=== PATIENT | male | born 1955 | race Caucasian/White ===

== ENCOUNTER 2020-01-09 20:31 | Emergency (ER) | payer BC, SELFPAY ==
[2020-01-09 20:32] VITALS: BP 159/98; PULSE 80; RESP 16; TEMP 36.3; O2SAT 97; BMI 24.4
--- NOTE | 2020-01-09 21:37 | ED.VIS.GEN ---
History of Present Illness Chief Complaint: Laceration Informant: Patient, Significant Other Onset: Today Narrative: Patient had a baseball strike his left eyebrow. The baseball was being gently thrown at him. No loss of consciousness. He is not on any blood thinners. He denies headache. He needs a tetanus shot. Past Medical History - Allergies and Home Meds Allergies/Adverse Reactions: Allergies No Known Allergies Allergy (Verified 01/09/20 20:37) Smoking Status: Never smoker Review of Systems General: Denies: Chills, Fever, Sweats Eyes: Denies: Visual changes - bilaterally, Diplopia ENT: Denies: Rhinorrhea, Sore throat Cardiovascular: Denies: Chest pain, Palpitations Respiratory: Denies: Dyspnea, Cough, Dyspnea on exertion Gastrointestinal: Denies: Abdominal pain, Nausea, Vomiting, Diarrhea, Melena, Hematochezia Genitourinary: Denies: Dysuria, Hematuria, Frequency Musculoskeletal: Denies: Back pain, Extremity Pain Skin: Denies: Rash, Wounds Neurological: Denies: Headache, Weakness, Numbness Physical Exam Vital Signs/Narrative: Vital Signs Temp Pulse Resp BP Pulse Ox 01/09/20 20:32 97.3 F L 80 16 159/98 H 97 Inital Vital Signs reviewed: Yes General: Well nourished, Well developed, No Acute Distress Head: Normocephalic, Trauma - There is a approximately 3 cm Y-shaped laceration in the left eyebrow. The eye itself appears atraumatic. Mild swelling and bruising of the left upper lid. Eyes: Perrl, EOMI ENT: Moist mucous membranes, No rhinorrhea Neck: Supple, Nontender Cardiovascular: Regular rate, Regular rhythm, No murmurs Respiratory: No distress, CTA bilaterally, Chest nontender Abdomen: Soft, Nontender, Nondistended, Normal bowel sounds Back: Nontender, Normal Inspection Extremities: Nontender, No edema Skin: Normal color, No rash Neurological: Alert, Oriented x3, Cranial nerves II-XII grossly intact, Normal Strength, Normal Sensation Psychological: Normal affect, Normal Mood Diagnostic/Tx/Re-eval - Medical Decision Making Wound was locally anesthetized using 1% lidocaine. Is washed with Shur-Clens and explored. A total of 5 simple interrupted 5-0 Ethilon sutures were placed. Local wound care discussed with patient. Return instructions of head injury were given. ED Disposition - Plan for ED Patient: Disposition: Home or Assisted Living Diagnosis: Facial laceration Instructions: ED Laceration Facial Sutr Tape, ED Head Injury Adult Additional Instructions: It should be removed in 5 to 7 days Recommend putting an antibiotic ointment on this wound daily. Fresh scars typically west different so if you are going to be out in the sun I recommend putting a sunscreen on her at least a hat.
[2020-01-09] MEDS: Diphth,Pertuss(Acell),Tet Vac 0.5 ML Vial IM (21:52)
== END 2020-01-09 22:10 | disposition home or self-care (01) ==
LOC: ED 21:47
PROVIDERS: Emergency Provider Emergency Medicine
DX: S01.112A Laceration without foreign body of left eyelid and periocular area, initial encounter (principal); W21.03XA Struck by baseball, initial encounter; Y93.9 Activity, unspecified; Y92.9 Unspecified place or not applicable; Y99.9 Unspecified external cause status; Z23 Encounter for immunization
CPT/HCPCS: 12013; 90471; 90715; 99283

== ENCOUNTER → 2020-12-02 09:39 | Outpatient (CLI) | payer BC, SELFPAY ==
[2020-12-01 08:18] VITALS: BMI 24.9
[2020-12-02 12:30] LABS: Absolute Lymphocyte Count 65.52 X10^3/uL (0.83-4.51); Absolute Neutrophil Count 3.2 X10^3/uL (2.0-7.7); Basophil# 0.05 X10^3/uL; Basophil% 0.1 % (0-1); Eosinophils% 0.1 % (0-5); Hematocrit 43.4 % (40-54); Hemoglobin 13.6 g/dL (13.0-16.5); Lymphocyte # 65.52 X10^3/ul (0.83-4.51); Lymphocyte % 94.3 % (19-41); Mean Corp Hgb Conc 31.3 g/dL (32-36); Mean Corpuscular Hgb 31.2 pg (27.0-32.0); Mean Corpuscular Volume 99.5 fL (80-94); Mean Platelet Vol. 10.5 fl (6.2-12.0); Monocyte# 0.63 X10^3/uL; Monocyte% 0.9 % (0-10); NRBC Flagged by Analyzer 0 % (0-5); Neutrophil # 3.15 X10^3/uL (2.7-7.7); Neutrophil % 4.5 % (47-70); POSITIVE COUNT YES; POSITIVE DIFFERENTIAL YES; POSITIVE MORPHOLOGY YES; Platelet Count 226 K/mm3 (150-450); RBC Distribution Width CV 14.5 % (11.6-14.6); RBC Distribution Width SD 53.1 fl (35.1-43.9); Red Blood Count 4.36 M/mm3 (4.6-6.2); White Blood Count 69.5 K/mm3 (4.4-11.0)
[2020-12-02 12:38] LABS: Differential Indicated SCAN CRITERIA MET
[2020-12-02 12:52] LABS: ALB/GLOB Ratio 1.3 RATIO (0.9-2.4); AST(SGOT) 38 U/L (15-37); Alanine Aminotransfer ALT/SGPT 38 U/L (16-61); Albumin, Serum 4.1 g/dL (3.2-5.0); Alkaline Phosphatase 78 U/L (45-117); Anion Gap 8 (5-15); BUN 18 mg/dL (7-18); BUN/Creat Ratio 20.1 RATIO (10-20); Calcium,Total 9.2 mg/dL (8.5-10.1); Chloride 103 mmol/L (98-107); Cholesterol 232 mg/dL (200); EST Glomerular Filtration Rate 90 mL/min (>60); Est Glom Filt Rate - Afr Amer 109 mL/min (>60); Globulin 3.2 g/dL (2.2-4.2); Glucose 84 mg/dL (74-106); High Density Lipoprotein 64 mg/dL; PSA,Total - Annual Screen 0.48 ng/mL (0.00-4.00); Protein, Total 7.3 g/dL (6.4-8.2); Sodium Level 140 mmol/L (136-145); Triglycerides 76 mg/dL; Very Low Density Lipoprotein 15 mg/dL (5-40)
[2020-12-02 13:00] LABS: Smudge Cells 1+
[2020-12-03 11:41] LABS: Pathologist Review Reviewed
== END ==
PROVIDERS: PCP Family Medicine; Referring Provider Family Medicine; Visit Provider Family Medicine
DX: Z00.00 Encounter for general adult medical examination without abnormal findings (principal); K40.90 Unilateral inguinal hernia, without obstruction or gangrene, not specified as recurrent; Z12.5 Encounter for screening for malignant neoplasm of prostate
CPT/HCPCS: 36415; 80053; 80061; 84153; 85025; G0103

== ENCOUNTER 2020-12-09 09:47 | Day surgery (SDC) | payer BC, SELFPAY ==
[2020-12-01 08:18] VITALS: BMI 24.9
--- NOTE | 2020-12-08 09:33 | EKG12_ITS ---
Test Reason : PRE OP Blood Pressure : / mmHG Vent. Rate : 068 BPM Atrial Rate : 068 BPM P-R Int : 160 ms QRS Dur : 096 ms QT Int : 404 ms P-R-T Axes : 071 085 047 degrees QTc Int : 429 ms Normal sinus rhythm Normal ECG Confirmed by ANNIE GARAY, JUAN ([id number]), continuity editor PETER RUSSELL ([id number]) on 12/09/2020 10:37:44 AM Referred By: Himanshu Kidd Confirmed By:JUAN VALENCIA MD
[2020-12-09] VITALS (7 sets, daily range): BP systolic 101–154; BP diastolic 52–89; PULSE 52–78; RESP 16; TEMP 36.2–37.1; O2SAT 96–98; BMI 24.4
[2020-12-09] MEDS: Lactated Ringers 1,000 ML 100 ML IV (10:25)
--- NOTE | 2020-12-09 10:48 | HP.PCM_ITS ---
History and Physical Date of Admission: 12/09/20 Intake Vital Signs 12/01/20 08:12 12/01/20 08:18 Height 6 ft Weight: 184 lb BMI 24.4 24.9 BP 132/75 H Blood Pressure Location Rt brachial Position Sitting Respiration 16 Intake Visit Reasons: INGUINAL HERNIA Chief Complaint: inguinal hernia Ticket Seller Required: No Is patient in pain?: No Allergies No Known Allergies Allergy (Verified 12/01/20 08:19) Medications NK 01/09/20 [History Confirmed 12/01/20] [facility] Medical History (Updated 12/01/20 @ 09:[address] Himanshu Kidd MD) Arthritis Back problem Surgical History (Updated 12/01/20 @ 08:11 by Janet Briceno) S/P tonsillectomy Family History (Updated 12/01/20 @ 08:12 by Janet Briceno) Father Heart disease Hypertension Mother Cancer pancreatic Grandmother CVA (cerebral vascular accident) Social History (Updated 12/01/20 @ 08:20 by Janet Briceno) Smoking Status: Never smoker alcohol intake: current alcohol intake frequency: a few times a month HPI HPI HPI: GLADYS KRISHNA, is a 65 M who presents to the office today for right groin bulging. The bulging is been there for about a month. No nausea or vomiting or radiation of pain. No abdominal pain. No change in bowel habits. Patient reports a bulging gross throughout the day and then goes away with laying down. ROS General General: No weight change, appetite, fatigue, colon cancer, breast cancer or weakness HEENT HEENT: No difficulty swallowing, eye injury, eye surgery, swollen glands or hoarseness Endo Endocrine: No thyroid disease, diabetes mellitus, thyroid cancer, Hair loss, heat intolerance or cold intolerance Skin Skin: No rash or changing moles Breast Breast: No left breast lump, right breast lump, nipple discharge, breast pain, abnormal mammogram, abnormal US or breast enlargement Musc Musculoskeletal: Yes back problems; No arthritis, rheumatoid arthritis, gout or joint pain Cardio Cardiovascular: No murmur, pacemaker, heart disease, atrial fibrillation, high blood pressure, heart attack, heart stent, palpitations, shortness of breat with exertion or chest pain Psych Psychiatric: No depression, anxiety or hearing voices Resp Respiratory: No shortness of breath, No sleep apnea, No cough, No COPD, No asthma, No emphysema and No wheezing Gastro Gastrointestinal: No abdominal pain, No nausea or vomiting, No diarrhea, No constipation, No blood in stool, No acid reflux, No hemorrhoids, No ulcers, No gallbladder problem and No black,tarry stools Owen Hematologic: No blood thinners, No blood disorders, No bleeding, No anemia and No blood clots Neuro Neurologic: No system reviewed and no additional complaints, except as documented, No as per HPI, No abnormal gait, No abnormal hearing, No abnormal movements, No abnormal speech, No behavioral changes, No burning sensations, No confusion, No convulsions, No disequilibrium, No dizziness, No localized weakness, No frequent falls, No headache(s), No lack of coordination, No loss of vision, No memory loss, No numbness, No other visual disturbances, No radicular pain, No restless legs, No sensory deficit, No syncope, No tingling, No tremor(s), No weakness and No other Exam Const General: cooperative Orientation: alert and oriented x3 HENMT Head: normal to inspection Neck Neck: normal visual inspection and full ROM Chest Chest palpation & inspection: normal inspection of the chest Resp Effort & Inspection: normal respiratory effort Auscultation: clear to auscultation bilaterally Cardio Rate: regular rate Rhythm: regular rhythm GI Inspection: non-distended Palpation: soft, hernia indirect inguinal on the right and nontender Skin General: no rashes or lesions noted Neuro General: patient alert and patient oriented x3 Extrem General: full ROM Psych Appearance: grossly normal Mental Status: mental status grossly normal Assessment and Plan Assessment and Plan (1) Right inguinal hernia: Status: Acute Plan - Dr. Himanshu Kidd MD: Patient has a right inguinal hernia. I discussed open versus laparoscopic repair and I discussed mesh placement. I discussed the procedures in detail. I discussed the risks of the procedure including with allergy bleeding, infection, chronic groin pain, injury to underlying bowel, recurrence of hernia and mesh placement. Patient understands and agrees to proceed with robotic assisted laparoscopic right inguinal hernia repair with mesh. If there is a contralateral hernia present he would like it repaired. Himanshu Kidd MD Pager: [phone] [address] [place] [address], [address] [place] [address] Office: I have re-examined the patient. There are no clinical changes since date of exam.
[2020-12-09] MEDS: Cefazolin 2 GM in 0.9% Normal Saline 100 ML IV (11:21)
[2020-12-09] MEDS: Bupivacaine Mpf 0.5% 30 ML VIAL (12:15)
--- NOTE | 2020-12-09 12:22 | EX.PCM.DISCH ---
Discharge Instructions Procedure Hernia Diet Discharge Diet: Light diet - advance as tolerated Activity Discharge Activity: May Not Drive (for 2-3 days or while taking narcotic pain meds.) and May Shower (with the bandage in place 1-2 days after surgery.) Lifting Restrictions: 20 pounds for 6 weeks. Additional Activity Instructions:: Climbing stairs is fine, walking is encouraged. Sitting in bed may be uncomfortable. Sitting up using your lateral muscles (sitting up sideways) is usually more comfortable. Do not drive, work heavy equipment of sign legal documents for 24 hours. If your hernia repair was an ingunial repair, you may have scrotal swelling, an ice pack and/or athletic support can provide more comfort. Pain medications may cause nausea, you should typically eat light foods as you take your pain medications. Pain medications may also cause constipation. If you have difficulty with this, discuss with your doctor. Dressing / Incision Call your doctor if your incision/area has: Continuous Slow Oozing, Sudden Increased Bleeding, Increased Pain/ Swelling, Increased Redness and Foul Smelling Discharge Call your doctor if you observe: Fever of 101 or Higher Suture Line Care: Avoid Pulling/Pushing and Avoid Pinching/Bending Remove Dressing in: 2 days Cleanse incision/area with: Soap & Water Follow Up Care Please Follow Up With: Himanshu Kidd MD When: Please call to schedule 2 week follow up appointment. [phone] Test Results: Test results from this visit will be discussed in further detail at your follow-up appointment, if applicable. Discharge Plan Admission Attending Provider: Himanshu Kidd Primary Care Provider: Abbey Gonzalez Discharge Orders/Prescriptions Prescriptions: New oxycodone-acetaminophen [Percocet] 5-325 mg tablet 1 tab PO Q4H PRN (Reason: pain) 5 Days Qty: 10 RF: 0 No Action NK RF: 0 Referrals / Follow Up: Abbey Gonzalez MD [Primary Care Provider] - Disposition Disposition (needs filled in before D/C Order can be placed): Home, Self Care
--- NOTE | 2020-12-09 12:24 | OP.PCM_ITS ---
Problems Associated Problem List Diagnoses (1) Right inguinal hernia: Report of Operation Date of Procedure: 12/09/20 Pre-Operative Diagnosis: Right inguinal hernia Post-Operative Diagnosis: Right inguinal hernia Surgery/Procedure Performed:: Robotic assisted laparoscopic right inguinal hernia repair with mesh Description of Procedure: Patient was brought back to the operating room and general anesthesia was induced. The abdomen was prepped and draped in usual sterile fashion. A midline incision was made superior to the umbilicus and the fascia was elevated and a Veress needle was placed into the abdomen and a drop test was performed which was normal. The abdomen was insufflated to 15 mmHg and the Veress needle was removed and a port was placed into the abdomen and the cam era was placed into the abdomen and it was inspected and there were no injuries. Patient was placed in Trendelenburg position and the inguinal regions were inspected. Patient had a right inguinal hernia containing appendix. No left inguinal hernia. Next under direct visualization a right lower quadrant and left lower quadrant 8 mm port were placed. Robot was docked. Using electrocautery the adhesion to the tip of the appendix was dissected free. Next the peritoneum was scored using electrocautery scissors and the dissection was carried inferiorly until the hernia sac was circumferentially dissected free and reduced. Dissection was carried inferiorly until there was none from for the mesh. Next a large piece of progrip mesh was placed into the right groin and unfolded over the hernia defect. A completely cover the defect. The peritoneum was reapproximated using a running 3 OV lock suture. The mesh was completely covered by peritoneum at the end of the case. The robot was undocked and the air was allowed to desufflate from the abdomen. The ports were removed. The incisions were injected with local anesthetic and closed with interrupted 4-0 Monocryl suture. Steri-Strips and bandages were applied. Scrotum was checked again the case and contain both testicles. Patient was awoken and taken to PACU in stable condition. Grafts/Implants Used: Progrip mesh Admit VTE Documentation VTE Mechan Device Prophylaxis: SCD's
== END 2020-12-09 15:21 | disposition home or self-care (01) ==
LOC: SDC 09:50 → AC 09:55
PROVIDERS: PCP Family Medicine; Referring Provider Surgery; Visit Provider Surgery
PROC: (CPT 49650; principal; 2020-12-09 11:55)
DX: K40.90 Unilateral inguinal hernia, without obstruction or gangrene, not specified as recurrent (principal); M19.90 Unspecified osteoarthritis, unspecified site
CPT/HCPCS: 00840; 49650; S2900; 93005; J7120; J2405

== ENCOUNTER 2021-12-19 18:27 | Observation (INO) | payer BC, SELFPAY ==
[2021-12-19] VITALS (7 sets, daily range): BP systolic 137–164; BP diastolic 80–88; PULSE 67–81; RESP 14–16; TEMP 36.8–37; O2SAT 94–100; BMI 20.5; BMI 20.8; BMI 25.4
--- NOTE | 2021-12-19 18:36 | ED.RN ---
spoke with dr. martínez regarding pt. no new orders given.
[2021-12-19 19:06] LABS: Bedside Glucose 88 mg/dL (74-106)
--- NOTE | 2021-12-19 19:12 | EKG12_ITS ---
Test Reason : DYSRHYTHMIA Blood Pressure : / mmHG Vent. Rate : 064 BPM Atrial Rate : 064 BPM P-R Int : 190 ms QRS Dur : 102 ms QT Int : 420 ms P-R-T Axes : 048 061 013 degrees QTc Int : 433 ms Normal sinus rhythm Normal ECG Confirmed by ANNIE GARAY, JUAN ([id number]), newspaper or periodical editor PETER RUSSELL ([id number]) on 12/21/2021 11:20:49 AM Referred By: GAGE Confirmed By:JUAN VALENCIA MD
--- NOTE | 2021-12-19 19:13 | ED.VIS.STROK ---
HPI History of Present Illness Chief Complaint: Neuro S/Sx Informant: patient and spouse/S.O. Onset/Context/Timing Onset: Today and Hours Context: Sudden Onset Timing: Continuous Current Severity: Gone Maximum Severity: Mild Associated Symptoms Associated Symptoms: Negative for Headache, Nausea, Vomiting or Chest Pain Narrative Narrative: 66-year-old male history of CLL currently on no medications. Today at home around 5:00 he was confused he knew he had to be a karate class but could not remember the day with a time. 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 Denies any other complaints. No headache or chest pain. No abdominal pain. No nausea, vomiting or diarrhea. No dysuria or fever. No recent head injury. He is on no blood thinners. He denies any recent falls. He has never had an episode like this before. He has never had a TIA or CVA. He denies any weakness or numbness to his upper or lower extremities. Prior similar symptoms: No Recent Illness/Hospitalization: No PFSH PFSH Medical History Alcohol use Back problem CLL (chronic lymphocytic leukemia) Diverticulosis Elevated WBC count Hallux limitus History of irregular heartbeat Non-smoker Wears contact lenses no medical history Home Medications NK 01/09/20 [History Last Taken Unknown] Allergy/AdvReac Type Severity Reaction Status Date / Time No Known Allergies Allergy Verified 12/19/21 18:28 Family History Father Heart disease Hypertension Mother Cancer pancreatic Grandmother CVA (cerebral vascular accident) Surgical History H/O tooth extraction S/P right inguinal hernia repair S/P tonsillectomy Social History Smoking Status: Never smoker alcohol intake: current alcohol intake frequency: a few times a month ROS ROS ED ROS Narrative Denies recent illness. Review of Systems ROS Unobtainable: Denies due to encephalopathy Constitutional Constitutional ED: Denies chills or fever(s) Eyes Eyes: Denies blurry vision ENT ENT ED: Denies ear pain Cardiovascular Cardiovascular: Denies chest pain or palpitations Respiratory/Chest Respiratory/Chest: Denies cough or dyspnea Gastrointestinal Gastrointestinal: Denies abdominal pain Genitourinary Genitourinary ED: Denies dysuria or hematuria Musculoskeletal Musculoskeletal: Denies arthralgias Integumentary Denies abscess Neurologic Neurologic: Denies headache(s), paresthesias or weakness Psychiatric Psychiatric: Denies anxiety Endocrine Endocrinology: Denies polydipsia Hematologic/Lymphatic Hematologic/Lymphatic: Denies easy bleeding Allergic/Immunologic Allergic/Immunologic ED: Denies mouth swelling EXAM Physical Exam Narrative Exam Narrative: 66-year-old male no acute distress. Vital signs stable afebrile. Pulse ox 100% on room air. is present at bedside. Patient looks younger than his stated age. No acute distress. H EENT exam normal. No facial droop. Pupils round reactive light. Normal speech. Neck nontender. Lungs are clear. Heart regular rhythm rate about 70 no murmur. Chest were nontender. Abdomen soft nontender. Normal 5 out of 5 procurement engineer strength. Dorsi plantarflexion intact. Moving all 4 extremities. No edema. Neurologically is awake and alert. He knows date, month, year and president night states. He has normal speech. He has a completely normal neurologic exam with NIH is 0. Const Vital Signs: 12/19/21 18:28 12/19/21 19:12 12/19/21 19:32 Temperature 98.2 F Temperature Source Temporal Pulse Rate 67 69 Respiratory Rate 14 16 Blood Pressure 164/88 H 137/82 H Blood Pressure Mean 113 100 Pulse Ox 100 98 Oxygen Delivery Method Room Air Room Air Room Air 12/19/21 20:00 Temperature Temperature Source Pulse Rate Respiratory Rate 16 Blood Pressure Blood Pressure Mean Pulse Ox Oxygen Delivery Method Positive well nourished and well developed; Negative for obese, cachectic, contractures or unkempt General Appearance ED: well developed and NAD; Negative for unkempt, cachectic or contractures Nutritional Appearance: Negative for cachectic or obese HEENT Reports moist mucous membranes; Denies TM's clear Negative for atraumatic or trauma Tympanic Membrane ED: Negative for TM's clear Eyes PERRL and EOMs intact bilaterally General Eye ED: Negative for pale conjunctiva or scleral icterus Neck no lymphadenopathy, supple and no JVD General: Negative for tenderness Thyroid: Negative for other Chest Wall inspection of chest normal and palpation of chest normal Chest: Negative for other Resp normal respiratory effort and clear to auscultation bilaterally Effort and Inspection: Negative for retractions Auscultation: Negative for rales, rhonchi or wheezes Cardio no murmurs Rate: regular rate; Negative for bradycardia or tachycardic Rhythm: regular rhythm; Negative for abnormal rhythm Heart Sounds: S1 normal and S2 normal GI normal to inspection, nondistended, normoactive bowel sounds, soft to palpation, non-tender, non-distended and no masses Inspection: Negative for abdominal distention Auscultation: normoactive bowel sounds Palpation: Negative for tender or guarding Back/Spine no CVA tenderness General Back: Negative for CVA tenderness Cervical Spine: Negative for cervical spine tenderness Thoracic Spine / Upper Back: Negative for thoracic spinal tenderness Lumbar Spine / Lower Back: Negative for lumbar spinal tenderness Extremity normal to inspection General Extremety ED: Negative for deformity, edema or tenderness General Extremity: Negative for deformity or edema Neuro oriented x3, CN's II-XII intact bilaterally and no sensory deficits noted Sensorium / Orientation: alert, oriented to person, oriented to place and oriented to time; Negative for orientation impaired, confused, lethargic or stuporous Speech: speech normal Motor Exam: strength 5/5 throughout Psych mental status grossly normal Appearance: Negative for unkempt Attitude: No agitated Mood & Affect: Negative for depressed Attention / Concentration: Negative for other Skin no wounds General Skin Exam: Negative for jaundice Lesions: no lesions Rashes: no rashes and No rashes noted Trauma: Negative for abrasion NIHSS NIHSS Initial: 1a Level of Consciousness: 0 1b LOC Questions (Score 2 if aphasic/stupor): 0 1c LOC Commands (Only score 1st attempt): 0 2 Best Gaze (If aphasic, use reflexive mvmts.): 0 3 Visual: 0 4 Facial Palsy: 0 5 Motor Arm Right (UN = amputation/fusion): 0 5 Motor Arm Left: 0 6 Motor Leg Right: 0 6 Motor Leg Left: 0 7 Limb ataxia (Only + if out of proportion): 0 8 Sensory (Aphasia/stupor=0 or 1, coma=2): 0 9 Best Language: 0 10 Dysarthria (mute, coma=2, intubated=UN): 0 11 Extinction and Inattention (only scored if +): 0 Total Score: 0 MDM MDM MDM Narrative Medical decision making narrative: 66-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 His NIH is 0. He does not have a history of CLL but is currently on no medications. He will undergo a CAT scan and labs. A CTA of his head neck also. Repeat exam patient is doing well at 2050 p.m. Exam normal. He and I went over his test results. His neurologic exam remains normal. In light that he had did have a transient mental status change I do feel he warrants admission to telemetry unit to be evaluated for any strokelike symptoms throughout the night. To ensure is not having a dysrhythmia. And also possible MRI in the morning. I will discuss his admission with the hospitalist. Patient is comfortable with this plan. Lab Data Attestation: I reviewed the patient's lab results. Lab results narrative: CBC shows a white count of 118.1 consistent with his history of chronic lymphocytic leukemia. H&H 12.7 and 41. Platelets 203. PT/INR and PTT normal. Chemistry is unremarkable. Glucose of 92. Troponin normal. CAT scan is read by the radiologist shows chronic changes but no acute stroke or bleed. He called me with the results. Labs: Laboratory Results - last 24 hr 12/19/21 12/19/21 12/19/21 18:43 18:45 18:45 WBC 118.1 H* RBC 4.17 L Hgb 12.7 L Hct 41.3 MCV 99.0 H MCH 30.5 MCHC 30.8 L RDW Std Deviation 51.0 H RDW Coeff of Kalli 14.2 Plt Count 203 MPV 10.0 Immature Gran % (Auto) 0.100 Neut % (Auto) 3.7 L Lymph % (Auto) 95.7 H [place] % (Auto) 0.5 Eos % (Auto) 0.0 Baso % (Auto) 0.0 Absolute Neuts (auto) 4.2 Absolute Lymphs (auto) 113.01 H Nucleated RBC % 0 Differential Comment SCANNED Diff Path Review May foll Smudge Cells 1+ H PT 12.9 INR 1.0 APTT 26.9 Sodium Potassium Chloride Carbon Dioxide Anion Gap BUN Creatinine Estim Creat Clear Calc Est GFR (MDRD) Af Amer Est GFR (MDRD) Non-Af BUN/Creatinine Ratio Glucose Calcium Troponin I High Sens POC Glucose 88 12/19/21 18:45 WBC RBC Hgb Hct MCV MCH MCHC RDW Std Deviation RDW Coeff of [place]alli Plt Count MPV Immature Gran % (Auto) Neut % (Auto) Lymph % (Auto) [place] % (Auto) Eos % (Auto) Baso % (Auto) Absolute Neuts (auto) Absolute Lymphs (auto) Nucleated RBC % Differential Comment Diff Path Review Smudge Cells PT INR APTT Sodium 140 Potassium 4.4 Chloride 105 Carbon Dioxide 30.0 Anion Gap 5 BUN 19 H Creatinine 0.96 Estim Creat Clear Calc 89.38 Est GFR (MDRD) Af Amer 101 Est GFR (MDRD) Non-Af 83 BUN/Creatinine Ratio 19.9 Glucose 92 Calcium 8.8 Troponin I High Sens 44 POC Glucose Radiography Diagnostic Testing: Clinical Impression(s) from Imaging Studies Chest X-Ray 12/19/21 19:18 IMPRESSION: Normal x-ray examination of the chest. Electronically Signed: Ramon Coppola MD at 20:43 EDT , Head/Neck CTA 12/19/21 20:02 IMPRESSION: No aneurysm or large vessel occlusion. Mild plaque at the carotid bifurcations without hemodynamically significant stenosis. N.B. : The above Results were Read Back by Ramon Coppola MD to Marko Fulton MD, and understanding confirmed on 12/19/2021 20:30:00 (ET). Electronically Signed: Ramon Coppola MD at 20:32 EDT , ADDENDUM: 12/19/212038 IMPRESSION: No aneurysm or large vessel occlusion. Mild plaque at the carotid bifurcations without hemodynamically significant stenosis. N.B. : The above Results were Read Back by Ramon Coppola MD to Marko Fulton MD, and understanding confirmed on 12/19/2021 20:30:00 (ET). Electronically Signed: Ramon Coppola MD at 20:32 EDT , Chest x-ray, portable, single view interpreted both by myself and the radiologist shows no acute abnormality. Normal cardiac silhouette mediastinum. We agree with our interpretations. Rhythm Strip Rhythm Strip: Sinus Rhythm Rate: 64 Ectopy: None EKG Initial EKG: Attestation: I personally reviewed and interpreted this EKG as follows: Interpretation: Sinus Rhythm and No Acute Injury Pattern Comments: Normal sinus rhythm rate of 64. No acute signs of CA or ischemia. Discharge Plan Dx/Rx/DC Orders Clinical Impression: Transient confusion, History of chronic lymphocytic leukemia Disposition Disposition: Acute Care Hospital [facility]
--- NOTE | 2021-12-19 19:18 | RAD_ITS ---
STUDY: X-RAY CHEST REASON FOR EXAM: Male, 66 years old. Neuro deficit, acute, stroke suspected TECHNIQUE: Single AP portable view of the chest. COMPARISON: None. FINDINGS: There are monitoring devices. The lungs are clear and expanded. There is no demonstrated pleural abnormality. Normal size heart. Normal mediastinum and minda. Normal visualized pulmonary arteries. Normal visualized aortic arch and descending thoracic aorta. Normal visualized thoracic spine. Normal visualized ribs, clavicles, and shoulders. There is no demonstrated abnormality of the visualized soft tissue structures of the upper abdomen. RAD/Chest 1 View IMPRESSION: Normal x-ray examination of the chest. Electronically Signed: Ramon Coppola MD at 20:43 EDT ,
[2021-12-19 19:24] LABS: Absolute Lymphocyte Count 113.01 X10^3/uL (0.83-4.51); Absolute Neutrophil Count 4.2 X10^3/uL (2.0-7.7); Basophil# 0.05 X10^3/uL; Eosinophil# 0.05 X10^3/uL; Hematocrit 41.3 % (40-54); Hemoglobin 12.7 g/dL (13.0-16.5); Lymphocyte # 113.01 X10^3/ul (0.83-4.51); Lymphocyte % 95.7 % (19-41); Mean Corp Hgb Conc 30.8 g/dL (32-36); Mean Corpuscular Hgb 30.5 pg (27.0-32.0); Monocyte% 0.5 % (0-10); NRBC Flagged by Analyzer 0 % (0-5); Neutrophil # 4.22 X10^3/uL (2.7-7.7); Neutrophil % 3.7 % (47-70); POSITIVE COUNT YES; POSITIVE DIFFERENTIAL YES; POSITIVE MORPHOLOGY YES; Platelet Count 203 K/mm3 (150-450); RBC Distribution Width CV 14.2 % (11.6-14.6); Red Blood Count 4.17 M/mm3 (4.6-6.2)
[2021-12-19 19:32] LABS: Differential Indicated SCAN CRITERIA MET
[2021-12-19 19:33] LABS: Prothrombin Time (Protime)PT. 12.9 SECONDS (11.7-14.9); White Blood Count 118.1 K/mm3 (4.4-11.0)
[2021-12-19 19:34] LABS: Partial Thromboplast Time 26.9 Seconds (24.1-36.2)
[2021-12-19 19:53] LABS: Anion Gap 5 (5-15); BUN 19 mg/dL (7-18); BUN/Creat Ratio 19.9 RATIO (10-20); Calcium,Total 8.8 mg/dL (8.5-10.1); Chloride 105 mmol/L (98-107); Creatinine, Serum 0.96 mg/dL (0.70-1.30); EST Glomerular Filtration Rate 83 mL/min (>60); Est Glom Filt Rate - Afr Amer 101 mL/min (>60); Estimated Creatinine Clearance 89.38 ml/min; Glucose 92 mg/dL (74-106); Potassium 4.4 mmol/L (3.5-5.1); Sodium Level 140 mmol/L (136-145); Troponin-I HS 44 pg/mL (3.0-78.0)
[2021-12-19 19:58] LABS: Smudge Cells 1+
[2021-12-19 20:02] LABS: Differential Comment SCANNED
--- NOTE | 2021-12-19 20:02 | CT_ITS ---
STUDY: CTA HEAD AND NECK WITH CONTRAST REASON FOR EXAM: Male, 66 years old. Neuro deficit, acute, stroke suspected RADIATION DOSAGE (If Supplied By Facility): CTDIvol = ( 32.10 ) mGy, DLP = ( 1559.89 ) mGycm TECHNIQUE: CT angiography was performed with a multi-detector CT scanner. Data acquisition was obtained from the skull base through the vertex following intravenous administration of IV 100mL Isovue-370. MIP images were reconstructed from the axial data set. Post-processing of the angiographic images was performed, with multiplanar reformation and 3D reconstruction. Individualized dose optimization techniques were used for this CT. COMPARISON: No relevant priors. FINDINGS: Normal bilateral petrous carotid arteries. Normal right cavernous carotid artery with a normal supraclinoid bifurcation. Normal left cavernous carotid artery with a normal supraclinoid bifurcation. Normal right A1 segments of the anterior cerebral artery. Normal left A1 segments of the anterior cerebral artery. Normal intact anterior communicating artery (ACOM). Normal bilateral A2 segments of the anterior cerebral arteries. Normal right M1 and M2 segments of the middle cerebral arteries, with a normal M1 bifurcation. Normal left M1 and M2 segments of the middle cerebral arteries, with a normal M1 bifurcation. Normal right posterior communicating artery (PCOM). Normal left posterior communicating artery (PCOM). There is a small atretic left vertebral artery with a dominant right vertebral artery. Normal basilar artery with a normal basilar bifurcation. The visualized bilateral superior cerebellar (SCA) arteries are normal. Normal bilateral P1, P2 and visualized P3 segments of the posterior cerebral arteries. There is no demonstrated aneurysm of the [place]. There is no demonstrated abnormality of the visualized brain. AORTIC ARCH: Normal visualized aortic arch. Normal origins of the brachiocephalic, left common carotid, and left subclavian arteries. RIGHT CAROTID ARTERIES: Normal right common carotid artery (CCA). There is mild atherosclerotic plaque formation with minimal narrowing of the right carotid bulb. Normal origin of the right internal carotid (ICA) artery without a hemodynamically significant stenosis. Normal visualized cervical portion of the right internal carotid artery. Normal origin of the right external carotid artery (ECA). LEFT CAROTID ARTERIES: Normal left common carotid artery (CCA). There is mild atherosclerotic plaque formation with minimal narrowing of the left carotid bulb. Normal origin of the left internal carotid (ICA) artery without a hemodynamically significant stenosis. Normal visualized cervical portion of the left internal carotid artery. Normal origin of the left external carotid artery (ECA). VERTEBRAL ARTERIES: There is enhancement within the bilateral vertebral arteries with a small left vertebral artery, and a dominant right vertebral artery. CT/STROKE CTA Head AND Neck W/Con IMPRESSION: No aneurysm or large vessel occlusion. Mild plaque at the carotid bifurcations without hemodynamically significant stenosis. N.B. : The above Results were Read Back by Ramon Coppola MD to Marko Fulton MD, and understanding confirmed on 12/19/2021 20:30:00 (ET). Electronically Signed: Ramon Coppola MD at 20:32 EDT ,
--- NOTE | 2021-12-19 21:14 | PCM.HP.STD ---
HPI - General General Date of Admission: 12/19/21 Date of Service: 12/19/21 Chief Complaint: forgetfulness HPI Narrative GLADYS KRISHNA, is a 66 M with a significantly of CLL who presents to the emergency department with forgetfulness. Reportedly patient had a karate class but he forgot when he was supposed to be there. He spoke to his over the phone and his realized that patient was confused. His symptoms started about 3 hours before presentation. His symptoms spontaneously resolved. 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 [facility] Medical History Alcohol use Back problem CLL (chronic lymphocytic leukemia) Diverticulosis Elevated WBC count Hallux limitus History of irregular heartbeat Non-smoker Wears contact lenses Medical History no medical history Home Medications NK 01/09/20 [History Last Taken Unknown] Allergy/AdvReac Type Severity Reaction Status Date / Time No Known Allergies Allergy Verified 12/19/21 18:28 Family History Father Heart disease Hypertension Mother Cancer pancreatic Grandmother CVA (cerebral vascular accident) Surgical History H/O tooth extraction S/P right inguinal hernia repair S/P tonsillectomy Social History Smoking Status: Never smoker alcohol intake: current alcohol intake frequency: a few times a month ROS ROS Narrative Pertinent positives and pertinent negatives as noted in HPI. All other systems were reviewed and are negative Vital Signs Vital Signs Vital Signs: 12/19/21 18:28 12/19/21 19:12 12/19/21 19:32 Temperature 98.2 F Temperature Source Temporal Pulse Rate 67 69 Respiratory Rate 14 16 Blood Pressure 164/88 H 137/82 H Blood Pressure Mean 113 100 Pulse Ox 100 98 Oxygen Delivery Method Room Air Room Air Room Air 12/19/21 20:00 Temperature Temperature Source Pulse Rate Respiratory Rate 16 Blood Pressure Blood Pressure Mean Pulse Ox Oxygen Delivery Method Weight Weight: 85.8 kg Body Mass Index (BMI) 20.8 Physical Exam Narrative Physical exam: General: Well-nourished, well-developed. Head: Normocephalic, atraumatic, no tenderness Eyes: Vision is grossly intact. EOMI ENT, no trauma, moist mucous membranes, no rhinorrhea Neck: Nontender, full range of motion, no spinal tenderness, deformities, step-off CVS: Regular rate and rhythm. S1-S2 present. No murmur, gallop or rub. Respiratory : clear to auscultation bilaterally, chest wall nontender, no wheezing Abdomen: Soft, nontender, nondistended, normal bowel sounds, no masses : Deferred Back: Nontender, no CVA tenderness, no midline spinal tenderness, deformities, step-offs Extremities: Nontender full range of motion, no trauma Skin: Normal color, no trauma, abrasions Neuro: Alert, oriented, cranial nerves II through XII grossly intact. Psychiatry: Normal mood. Normal affect. Not depressed. Not anxious. Results Lab / Micro Data Result Diagrams: 12/19/21 18:45 12/19/21 18:45 Labs: Laboratory Results - last 24 hr 12/19/21 18:43: POC Glucose 88 12/19/21 18:45: WBC 118.1 H*, RBC 4.17 L, Hgb 12.7 L, Hct 41.3, MCV 99.0 H, MCH 30.5, MCHC 30.8 L, RDW Std Deviation 51.0 H, RDW Coeff of Kalli 14.2, Plt Count 203, MPV 10.0, Immature Gran % (Auto) 0.100, Neut % (Auto) 3.7 L, Lymph % (Auto) 95.7 H, [place] % (Auto) 0.5, Eos % (Auto) 0.0, Baso % (Auto) 0.0, Absolute Neuts (auto) 4.2, Absolute Lymphs (auto) 113.01 H, Nucleated RBC % 0, Differential Comment SCANNED, Diff Path Review May foll, Smudge Cells 1+ H 12/19/21 18:45: PT 12.9, INR 1.0, APTT 26.9 12/19/21 18:45: Sodium 140, Potassium 4.4, Chloride 105, Carbon Dioxide 30.0, Anion Gap 5, BUN 19 H, Creatinine 0.96, Estim Creat Clear Calc 89.38, Est GFR (MDRD) Af Amer 101, Est GFR (MDRD) Non-Af 83, BUN/Creatinine Ratio 19.9, Glucose 92, Calcium 8.8, Troponin I High Sens 44 Rhythm Strip Rhythm Strip: Sinus Rhythm Rate: 64 Ectopy: None Radiology Impression Chest X-Ray 12/19/21 19:18 IMPRESSION: Normal x-ray examination of the chest. Electronically Signed: Ramon Coppola MD at 20:43 EDT Reading Location ID and State: [facility] / [place] , Service support , Head/Neck CTA 12/19/21 20:02 IMPRESSION: No aneurysm or large vessel occlusion. Mild plaque at the carotid bifurcations without hemodynamically significant stenosis. N.B. : The above Results were Read Back by Ramon Coppola MD to Marko Fulton MD, and understanding confirmed on 12/19/2021 20:30:00 (ET). Electronically Signed: Ramon Coppola MD at 20:32 EDT Reading Location ID and State: [employer] / [place] , Service support , ADDENDUM: 12/19/212038 IMPRESSION: No aneurysm or large vessel occlusion. Mild plaque at the carotid bifurcations without hemodynamically significant stenosis. N.B. : The above Results were Read Back by Ramon Coppola MD to Marko Fulton MD, and understanding confirmed on 12/19/2021 20:30:00 (ET). Electronically Signed: Ramon Coppola MD at 20:32 EDT Reading Location ID and State: [facility] [facility] / [place] , Service support , Assessment & Plan Assessment/Plan (1) Transient confusion: (2) Transient amnesia: PLAN: Plan Transient amnesia and confusion Serial NINDS NIH Scale ordered Impression of head/neck CTA: No hemodynamically significant stenosis. Upon my personal head/neck CTA image review: I agree with radiologist interpretation Lipid profile and A1c ordered. Permissive hypertension. Control blood pressure with labetalol for systolic blood pressure of more than 220 or diastolic blood pressure of more than 120. MRI of brain ordered. History of CLL White count on presentation was 118.1. Trend CBC DVT prophylaxis: SCDs ordered Charges/Coding Visit Charges OBSV E&M: 74658 Initial observation care L2
[2021-12-20 01:53] VITALS: BP 126/85; PULSE 55; RESP 16; TEMP 36.4; O2SAT 97
[2021-12-20 02:31] VITALS: BMI 25.4
[2021-12-20 04:02] VITALS: PULSE 53
[2021-12-20 06:00] VITALS: BP 126/84; PULSE 53; RESP 14; TEMP 36.4; O2SAT 96
[2021-12-20 06:08] LABS: Absolute Lymphocyte Count 99.25 X10^3/uL (0.83-4.51); Absolute Neutrophil Count 2.7 X10^3/uL (2.0-7.7); Basophil# 0.07 X10^3/uL; Basophil% 0.1 % (0-1); Eosinophil# 0.09 X10^3/uL; Eosinophils% 0.1 % (0-5); Hematocrit 39.7 % (40-54); Hemoglobin 12.4 g/dL (13.0-16.5); Lymphocyte # 99.25 X10^3/ul (0.83-4.51); Lymphocyte % 96.6 % (19-41); Mean Corp Hgb Conc 31.2 g/dL (32-36); Mean Corpuscular Hgb 30.9 pg (27.0-32.0); Mean Platelet Vol. 9.8 fl (6.2-12.0); Monocyte# 0.52 X10^3/uL; Monocyte% 0.5 % (0-10); NRBC Flagged by Analyzer 0 % (0-5); Neutrophil # 2.73 X10^3/uL (2.7-7.7); Neutrophil % 2.6 % (47-70); POSITIVE COUNT YES; POSITIVE DIFFERENTIAL YES; POSITIVE MORPHOLOGY YES; Platelet Count 174 K/mm3 (150-450); RBC Distribution Width CV 14.2 % (11.6-14.6); RBC Distribution Width SD 50.8 fl (35.1-43.9); Red Blood Count 4.01 M/mm3 (4.6-6.2); White Blood Count 102.7 K/mm3 (4.4-11.0)
[2021-12-20 06:14] LABS: Differential Indicated SCAN CRITERIA MET
[2021-12-20 06:38] LABS: Macrocytosis 1+
[2021-12-20 06:44] LABS: Anion Gap 3 (5-15); BUN 18 mg/dL (7-18); BUN/Creat Ratio 17.8 RATIO (10-20); Calcium,Total 8.8 mg/dL (8.5-10.1); Chloride 108 mmol/L (98-107); Cholesterol 209 mg/dL (200); Creatinine, Serum 1.01 mg/dL (0.70-1.30); EST Glomerular Filtration Rate 78 mL/min (>60); Est Glom Filt Rate - Afr Amer 94 mL/min (>60); Estimated Creatinine Clearance 76.83 ml/min; Glucose 88 mg/dL (74-106); High Density Lipoprotein 48 mg/dL; Potassium 4.9 mmol/L (3.5-5.1); Sodium Level 141 mmol/L (136-145); Triglycerides 75 mg/dL; Very Low Density Lipoprotein 15 mg/dL (5-40)
[2021-12-20 07:22] VITALS: O2SAT 96
--- NOTE | 2021-12-20 07:39 | PCM.PN.HOSP ---
Subjective Subjective Patient is a 66-year-old M admitted with transient amnesia and confusion. Initial head CT and CT of the head and neck unremarkable admitted to a monitored bed for subsequent management Objective Data Objective Data Vital Signs: Vital Signs Temp Pulse Resp BP Pulse Ox O2 Del Method 97.5 F L 53 L 14 126/84 H 96 Room Air 12/20/21 06:00 12/20/21 06:00 12/20/21 06:00 12/20/21 06:00 12/20/21 06:00 12/20/21 06:00 Oxygen Delivery Method Room Air Weight: 85.1 kg Body Mass Index (BMI) 25.4 Lab / Micro Data Result Diagrams: 12/20/21 05:50 12/20/21 05:50 Labs: Laboratory Results - last 24 hr 12/19/21 18:43: POC Glucose 88 12/19/21 18:45: WBC 118.1 H*, RBC 4.17 L, Hgb 12.7 L, Hct 41.3, MCV 99.0 H, MCH 30.5, MCHC 30.8 L, RDW Std Deviation 51.0 H, RDW Coeff of Kalli 14.2, Plt Count 203, MPV 10.0, Immature Gran % (Auto) 0.100, Neut % (Auto) 3.7 L, Lymph % (Auto) 95.7 H, [place] % (Auto) 0.5, Eos % (Auto) 0.0, Baso % (Auto) 0.0, Absolute Neuts (auto) 4.2, Absolute Lymphs (auto) 113.01 H, Nucleated RBC % 0, Differential Comment SCANNED, Diff Path Review May foll, Smudge Cells 1+ H 12/19/21 18:45: PT 12.9, INR 1.0, APTT 26.9 12/19/21 18:45: Sodium 140, Potassium 4.4, Chloride 105, Carbon Dioxide 30.0, Anion Gap 5, BUN 19 H, Creatinine 0.96, Estim Creat Clear Calc 89.38, Est GFR (MDRD) Af Amer 101, Est GFR (MDRD) Non-Af 83, BUN/Creatinine Ratio 19.9, Glucose 92, Calcium 8.8, Troponin I High Sens 44 12/20/21 05:50: WBC 102.7 H*, RBC 4.01 L, Hgb 12.4 L, Hct 39.7 L, MCV 99.0 H, MCH 30.9, MCHC 31.2 L, RDW Std Deviation 50.8 H, RDW Coeff of Kalli 14.2, Plt Count 174, MPV 9.8, Immature Gran % (Auto) 0.100, Neut % (Auto) 2.6 L, Lymph % (Auto) 96.6 H, [place] % (Auto) 0.5, Eos % (Auto) 0.1, Baso % (Auto) 0.1, Absolute Neuts (auto) 2.7, Absolute Lymphs (auto) 99.25 H, Nucleated RBC % 0, Diff Path Review May foll, Macrocytosis 1+ 12/20/21 05:50: Sodium 141, Potassium 4.9, Chloride 108 H, Carbon Dioxide 30.0, Anion Gap 3 L, BUN 18, Creatinine 1.01, Estim Creat Clear Calc 76.83, Est GFR (MDRD) Af Amer 94, Est GFR (MDRD) Non-Af 78, BUN/Creatinine Ratio 17.8, Glucose 88, Calcium 8.8, Triglycerides 75, Cholesterol 209 H, LDL Cholesterol 146 H, VLDL Cholesterol 15, HDL Cholesterol 48 Radiography Diagnostic Testing: Radiology Impression Chest X-Ray 12/19/21 19:18 IMPRESSION: Normal x-ray examination of the chest. Electronically Signed: Ramon Coppola MD at 20:43 EDT , Head/Neck CTA 12/19/21 20:02 IMPRESSION: No aneurysm or large vessel occlusion. Mild plaque at the carotid bifurcations without hemodynamically significant stenosis. N.B. : The above Results were Read Back by Ramon Coppola MD to Marko Fulton MD, and understanding confirmed on 12/19/2021 20:30:00 (ET). Electronically Signed: Ramon Coppola MD at 20:32 EDT , ADDENDUM: 12/19/212038 IMPRESSION: No aneurysm or large vessel occlusion. Mild plaque at the carotid bifurcations without hemodynamically significant stenosis. N.B. : The above Results were Read Back by Ramon Coppola MD to Marko Fulton MD, and understanding confirmed on 12/19/2021 20:30:00 (ET). Electronically Signed: Ramon Coppola MD at 20:32 EDT , Rhythm Strip Rhythm Strip: Sinus Rhythm Rate: 64 Ectopy: None Physical Exam Narrative GENERAL: cooperative HEENT: Atraumatic; EYES; Anicteric, Normal Conjunctiva NECK; supple, normal thyroid, RESPIRATORY: Diminished to auscultation CARDIOVASCULAR: Regular S1 S2, GI: soft, normoactive bowel sounds, : No Renal angle tenderness; EXTREMITIES: No edema, no clubbing, MUSCULOSKELETAL: no muscle wasting NEURO: Awake; no lateralizing signs. SKIN: No Rash PSYCH; Flat affect Assessment & Plan Assessment/Plan (1) Transient confusion: (2) Transient amnesia: PLAN: Plan Patient is a 66-year-old M admitted with transient amnesia and confusion. Initial head CT and CT of the head and neck unremarkable admitted to a monitored bed for subsequent management 1. Transient global amnesia ? Patient has been admitted to regular nursing floor currently undergoing further evaluation with MRI of the brain. 3. CLL ? Stable 3. DVT prophylaxis ? SC Lovenox Charges/Coding Visit Charges OBSV E&M: 96311 Subsequent observation care L2
[2021-12-20] MEDS: Enoxaparin 40 MG/0.4 ML Syringe SC (08:59)
--- NOTE | 2021-12-20 09:00 | MRI_ITS ---
HISTORY: CVA. TECHNIQUE: Multiplanar and multisequence MR images of the brain were obtained without contrast. 292 images. COMPARISON: CT 12/19/2021. FINDINGS: BRAIN PARENCHYMA: Minimal periventricular chronic white matter changes. No abnormal focus of restricted diffusion. No acute intracranial hemorrhage identified. CSF SPACES: Cerebral ventricles, cortical sulci, and other extra-axial CSF spaces within normal limits in size for patient''s age. No significant midline shift or other mass effect.No extra-axial fluid collection. VASCULAR SYSTEM: Major intracranial flow voids are maintained. PARANASAL SINUSES AND MASTOID AIR CELLS: No significant air fluid levels. ORBITS: Symmetric contents. MRI/Brain without Contrast IMPRESSION: Unremarkable examination. No evidence for acute infarct. Electronically Signed: Shavon Craig MD at 10:06 EDT ,
[2021-12-20 09:20] VITALS: PULSE 55
[2021-12-20 09:51] LABS: Hemoglobin A1c 5.5 % (3.8-5.6)
--- NOTE | 2021-12-20 10:00 | PCM.DC.SUM ---
Providers Date of Admission: 12/19/21 Date of Discharge: 12/20/21 Primary Care Physician: Dr. Abbey Gonzalez MD Reason For Visit: TRANSIENT AMNESIA Diagnosis Discharge Diagnosis (1) Transient confusion: Status: Acute Code(s): R41.0 - Disorientation, unspecified (2) Transient amnesia: Status: Acute Code(s): R41.3 - Other amnesia Plan Patient is a 66-year-old M admitted with transient amnesia and confusion. Initial head CT and CT of the head and neck unremarkable admitted to a monitored bed for subsequent management 1. Transient global amnesia ? Patient has been admitted to regular nursing floor currently undergoing further evaluation with MRI of the brain. ? MRI was unremarkable patient was discharged home on antiplatelet therapy with aspirin as well as atorvastatin 3. CLL ? Stable 3. DVT prophylaxis ? SC Lovenox Medications at Discharge Home Medications aspirin 81 mg capsule 81 mg PO DAILY #90 caps 12/20/21 atorvastatin 40 mg tablet 40 mg PO QHS #90 tabs 12/20/21 Hospital Course Summary of Care Provided Minutes Spent on Discharge: 35 Physical Exam Narrative GENERAL: cooperative HEENT: Atraumatic; EYES; Anicteric, Normal Conjunctiva NECK; supple, normal thyroid, RESPIRATORY: Diminished to auscultation CARDIOVASCULAR: Regular S1 S2, GI: soft, normoactive bowel sounds, : No Renal angle tenderness; EXTREMITIES: No edema, no clubbing, MUSCULOSKELETAL: no muscle wasting NEURO: Awake; no lateralizing signs. SKIN: No Rash PSYCH; Flat affect Weight / BMI Weight Weight: 85.1 kg Body Mass Index (BMI) 25.4 ABG / Lab / Microbiology Data Result Diagrams: 12/20/21 05:50 12/20/21 05:50 Laboratory: Laboratory Results - last 24 hr 12/19/21 18:43: POC Glucose 88 12/19/21 18:45: WBC 118.1 H*, RBC 4.17 L, Hgb 12.7 L, Hct 41.3, MCV 99.0 H, MCH 30.5, MCHC 30.8 L, RDW Std Deviation 51.0 H, RDW Coeff of Kalli 14.2, Plt Count 203, MPV 10.0, Immature Gran % (Auto) 0.100, Neut % (Auto) 3.7 L, Lymph % (Auto) 95.7 H, [place] % (Auto) 0.5, Eos % (Auto) 0.0, Baso % (Auto) 0.0, Absolute Neuts (auto) 4.2, Absolute Lymphs (auto) 113.01 H, Nucleated RBC % 0, Differential Comment SCANNED, Diff Path Review May simon, Smudge Cells 1+ H 12/19/21 18:45: PT 12.9, INR 1.0, APTT 26.9 12/19/21 18:45: Sodium 140, Potassium 4.4, Chloride 105, Carbon Dioxide 30.0, Anion Gap 5, BUN 19 H, Creatinine 0.96, Estim Creat Clear Calc 89.38, Est GFR (MDRD) Af Amer 101, Est GFR (MDRD) Non-Af 83, BUN/Creatinine Ratio 19.9, Glucose 92, Calcium 8.8, Troponin I High Sens 44 12/20/21 05:50: WBC 102.7 H*, RBC 4.01 L, Hgb 12.4 L, Hct 39.7 L, MCV 99.0 H, MCH 30.9, MCHC 31.2 L, RDW Std Deviation 50.8 H, RDW Coeff of Kalli 14.2, Plt Count 174, MPV 9.8, Immature Gran % (Auto) 0.100, Neut % (Auto) 2.6 L, Lymph % (Auto) 96.6 H, [place] % (Auto) 0.5, Eos % (Auto) 0.1, Baso % (Auto) 0.1, Absolute Neuts (auto) 2.7, Absolute Lymphs (auto) 99.25 H, Nucleated RBC % 0, Diff Path Review August simon, Macrocytosis 1+ 12/20/21 05:50: Sodium 141, Potassium 4.9, Chloride 108 H, Carbon Dioxide 30.0, Anion Gap 3 L, BUN 18, Creatinine 1.01, Estim Creat Clear Calc 76.83, Est GFR (MDRD) Af Amer 94, Est GFR (MDRD) Non-Af 78, BUN/Creatinine Ratio 17.8, Glucose 88, Calcium 8.8, Triglycerides 75, Cholesterol 209 H, LDL Cholesterol 146 H, VLDL Cholesterol 15, HDL Cholesterol 48 12/20/21 05:50: Hemoglobin A1c 5.5 Radiography Diagnostic Testing: Radiology Impression Chest X-Ray 12/19/21 19:18 IMPRESSION: Normal x-ray examination of the chest. Electronically Signed: Ramon Coppola MD at 20:43 EDT Reading Location ID and State: [facility] / [place] , Service support , Head/Neck CTA 12/19/21 20:02 IMPRESSION: No aneurysm or large vessel occlusion. Mild plaque at the carotid bifurcations without hemodynamically significant stenosis. N.B. : The above Results were Read Back by Ramon Coppola MD to Marko Fulton MD, and understanding confirmed on 12/19/2021 20:30:00 (ET). Electronically Signed: Ramon Coppola MD at 20:32 EDT Reading Location ID and State: [facility] / [place] , Service support , ADDENDUM: 12/19/212038 IMPRESSION: No aneurysm or large vessel occlusion. Mild plaque at the carotid bifurcations without hemodynamically significant stenosis. N.B. : The above Results were Read Back by Ramon Coppola MD to Marko Fulton MD, and understanding confirmed on 12/19/2021 20:30:00 (ET). Electronically Signed: Ramon Coppola MD at 20:32 EDT , D/C Instructions Discharge Diet: No restrictions Discharge Activity: Return to Normal Activity Call your doctor if you observe: Fever of 101 or Higher, Shortness of breath, Fainting spells and Chest pain Meaningful Use Info Meaningful Use Diagnoses (Choose all that apply): None applicable Discharge Plan Admission Admit Date/Time: 12/19/21 21:16 Attending Provider: Tong Quiñones Primary Care Provider: Abbey Gonzalez Consulting Providers: Shimon Cedillo Discharge Orders/Prescriptions Prescriptions: New aspirin 81 mg capsule 81 mg PO DAILY Qty: 90 0RF atorvastatin 40 mg tablet 40 mg PO QHS Qty: 90 0RF Referrals / Follow Up: Abbey Gonzalez MD [Primary Care Provider] - Within 1 Week Disposition Disposition (needs filled in before D/C Order can be placed): Home, Self Care Charges/Coding Visit Charges OBSV E&M: 58085 Observation care discharge
--- NOTE | 2021-12-20 11:13 | PHA.DC.MC ---
Pharmacy Service has performed discharge medication reconciliation and counseling for this patient. 1. ASPIRIN 81MG PO DAILY 2. ATORVASTATIN 40MG PO QHS The patient's discharge medication list was reviewed for discrepancies and discrepancies were resolved. Home Medications aspirin 81 mg capsule 81 mg PO DAILY #90 caps 12/20/21 atorvastatin 40 mg tablet 40 mg PO QHS #90 tabs 12/20/21 The patient was counseled on the following discharge medications and changes in medications for homegoing were reviewed. The Reason for Use, instructions for use, and potential side effects were reviewed for all new medications. The patient's questions regarding all of their medications were answered. The patient was able to verbally demonstrate an understanding of their discharge medications. Patient counseled by student support advisorDevang.
[2021-12-21 10:12] LABS: Pathologist Review Reviewed
[2021-12-21 10:12] LABS: Pathologist Review Reviewed
== END 2021-12-20 10:54 | disposition home or self-care (01) ==
LOC: ED 20:59 → PCU 21:47
PROVIDERS: Admitting Provider Hospitalist; Emergency Provider Emergency Medicine; PCP Family Medicine; Visit Provider Internal Medicine
DX: G45.4 Transient global amnesia (principal); C91.10 Chronic lymphocytic leukemia of B-cell type not having achieved remission; R41.0 Disorientation, unspecified; Z87.19 Personal history of other diseases of the digestive system; Z86.79 Personal history of other diseases of the circulatory system; R29.700 NIHSS score 0
CPT/HCPCS: 70496; 70498; 70551; 71045; 80048; 80061; 82962; 83036; 84484; 85025; 85610; 85730; 93005; 94762; 96372; 99218; 99285; Q9967; A4216; G0378

== ENCOUNTER → 2022-02-24 | Outpatient (CLI) | payer BC, SELFPAY ==
--- NOTE | 2022-02-24 14:13 | ECHOD_ITS ---
Reason For Study: TIA Procedure This was a 2D Doppler, Color Flow transthoracic echocardiogram. Exam performed in department. Left Ventricle Normal LV size. Apical false tendon noted. Left ventricular systolic function is normal. The estimated ejection fraction is 65 %. Diastolic function is indeterminate. No regional wall motion abnormalities noted. Right Ventricle Normal RV size. Normal systolic function. Atria The left atrium is mildly enlarged. The right atrium is mildly enlarged. No doppler evidence for ASD. Bubble contrast study negative for right to left interatrial shunt. Mitral Valve There is no mitral annular calcification. Mild focal mitral valve calcification of the anterior leaflet. The mitral valve chordae are thickened and/or calcified. Mild-Moderate (1-2+) mitral valve insufficiency. Tricuspid Valve Normal tricuspid valve. Mild tricuspid valve insufficiency. Right ventricular systolic pressure estimated to be 22 mmHg. Aortic Valve Trisinus/trileaflet aortic valve. Mild focal aortic valve calcification. Pulmonic Valve The pulmonic valve is not well visualized. Trivial pulmonic valve insufficiency. Great Vessels Borderline enlarged aortic root. Pericardium/Pleural No pericardial effusion. MMode/2D Measurements & Calculations LVIDd: 5.2 cm IVSd: 0.71 cm Ao root diam: 3.9 cm LVIDs: 3.2 cm LVPWd: 0.91 cm FS: 38.2 % LAV(MOD-bp): 103.1 ml LVAd ap4: 35.1 cm2 SV(MOD-sp4): 83.1 ml LAV(MOD-bp) Indexed: 50.0 ml/m2 LVLd ap4: 8.3 cm LAV(MOD-sp2): 112.7 ml EDV(MOD-sp4): 123.1 ml LAV(MOD-sp4): 93.4 ml EDV(sp4-el): 126.0 ml LVAs ap4: 17.1 cm2 LVLs ap4: 6.1 cm ESV(MOD-sp4): 40.1 ml ESV(sp4-el): 40.8 ml EF(MOD-sp4): 67.5 % EF(sp4-el): 67.6 % SV(sp4-el): 85.3 ml LA A4 area: 27.0 cm2 LA dimension(2D): 4.3 cm RA A4 area: 25.0 cm2 Time Measurements MV dec time: 0.25 sec Doppler Measurements & Calculations MV E max ren: 66.1 cm/sec Lat Peak E' Ren: 11.1 cm/sec Med Peak E' Ren: 9.2 cm/sec MV A max ren: 78.9 cm/sec E/E' lat: 5.9 E/E' med: 7.2 MV E/A: 0.84 MV V2 max: 76.6 cm/sec Ao V2 max: 109.7 cm/sec MV max P.3 mmHg MV dec slope: 285.7 cm/sec2 Ao max P.8 mmHg MV V2 mean: 53.4 cm/sec Ao V2 mean: 75.5 cm/sec MV mean P.2 mmHg Ao mean P.6 mmHg MV V2 VTI: 28.5 cm Ao V2 VTI: 24.3 cm LV V1 max: 83.0 cm/sec MR max ren: 513.4 cm/sec PA V2 max: 96.1 cm/sec LV V1 max P.8 mmHg MR max P.4 mmHg PA V2 mean: 65.4 cm/sec LV V1 mean P.6 mmHg LV V1 mean: 58.2 cm/sec LV V1 VTI: 17.5 cm TR max ren: 215.8 cm/sec TR max P.6 mmHg ECHO/Echo Complete Interpretation Summary Left ventricular systolic function is normal. The estimated ejection fraction is 65 %. Apical false tendon noted. The left atrium is mildly enlarged. The right atrium is mildly enlarged. Mild focal mitral valve calcification of the anterior leaflet. The mitral valve chordae are thickened and/or calcified. Mild-Moderate (1-2+) mitral valve insufficiency. Mild tricuspid valve insufficiency. Mild focal aortic valve calcification. Trivial pulmonic valve insufficiency. Borderline enlarged aortic root. Right ventricular systolic pressure estimated to be 22 mmHg. Diastolic function is indeterminate. Bubble contrast study negative for right to left interatrial shunt. Ordering Physician: Abbey Gonzalez Referring Physician: Abbey Gonzalez Performed By: Nena Lopez RCS
== END | disposition home or self-care (01) ==
PROVIDERS: PCP Family Medicine; Referring Provider Family Medicine; Visit Provider Family Medicine
DX: G45.9 Transient cerebral ischemic attack, unspecified (principal)
CPT/HCPCS: 93306; A4216

== ENCOUNTER → 2022-04-04 | Outpatient (CLI) | payer BC, SELFPAY ==
[2022-04-04 12:30] LABS: Cholesterol 155 mg/dL (200); High Density Lipoprotein 58 mg/dL; Triglycerides 54 mg/dL; Very Low Density Lipoprotein 11 mg/dL (5-40)
== END | disposition home or self-care (01) ==
LOC: BFHLAB 08:49
PROVIDERS: PCP Family Medicine; Visit Provider Family Medicine
DX: G45.9 Transient cerebral ischemic attack, unspecified (principal); E78.5 Hyperlipidemia, unspecified
CPT/HCPCS: 36415; 80061

== ENCOUNTER → 2024-02-18 | Outpatient (CLI) | payer BC, MEDICARE, SELFPAY ==
--- NOTE | 2024-02-18 11:03 | ECHOD_ITS ---
Reason For Study: ASSESS MV Procedure This was a 2D Doppler, Color Flow transthoracic echocardiogram. Exam performed in department. Left Ventricle Normal LV size. Mild concentric left ventricular hypertrophy. The left ventricular ejection fraction is 55 %. Left ventricular systolic function is normal. No regional wall motion abnormalities noted. Right Ventricle Normal RV size. Normal systolic function. Atria The left atrium is mildly enlarged. The right atrium is moderately enlarged. Mitral Valve Bileaflet diffuse mitral valve thickening. Bileaflet restriction of the mitral valve. There is mild to moderate mitral annular calcification. Mild-Moderate (1-2+) eccentric mitral valve insufficiency. Tricuspid Valve Normal tricuspid valve. Mild (1+) tricuspid valve insufficiency. Aortic Valve Trisinus/trileaflet aortic valve. Pulmonic Valve Normal pulmonic valve. Great Vessels Mildly dilated aortic root. The pulmonary artery is normal size. Inferior vena cava collapse with sniff. Pericardium/Pleural No pericardial effusion. MMode/2D Measurements & Calculations LVIDd: 4.2 cm IVSd: 1.4 cm LVOT diam: 2.4 cm LVIDs: 3.4 cm LVPWd: 1.3 cm LVOT area: 4.7 cm2 RVDd: 3.3 cm FS: 20.2 % Ao root diam: 3.9 cm LAV(MOD-bp): 80.2 ml LVAd ap4: 25.5 cm2 LAV(MOD-bp) Indexed: 39.4 ml/m2 LVLd ap4: 7.4 cm LAV(MOD-sp2): 84.1 ml EDV(MOD-sp4): 70.3 ml LAV(MOD-sp4): 67.1 ml EDV(sp4-el): 74.2 ml LVAs ap4: 17.3 cm2 LVLs ap4: 6.7 cm ESV(MOD-sp4): 36.6 ml ESV(sp4-el): 38.0 ml EF(MOD-sp4): 47.9 % EF(sp4-el): 48.8 % SV(MOD-sp4): 33.7 ml SV(sp4-el): 36.2 ml LA A4 area: 24.1 cm2 LA dimension(2D): 4.1 cm RA A4 area: 26.7 cm2 Doppler Measurements & Calculations Ao V2 max: 101.6 cm/sec LV V1 max: 74.1 cm/sec SV(LVOT): 67.1 ml Ao max P.1 mmHg LV V1 max P.2 mmHg Ao V2 mean: 62.4 cm/sec LV V1 mean P.3 mmHg Ao mean P.0 mmHg LV V1 mean: 49.9 cm/sec Ao V2 VTI: 17.0 cm LV V1 VTI: 14.3 cm AV (velocity ratio): 0.84 SANDRO(I,D): 3.9 cm2 SANDRO(V,D): 3.4 cm2 ECHO/Echo Complete Interpretation Summary Normal LV size. The left ventricular ejection fraction is 55 %. Left ventricular systolic function is normal. Bileaflet diffuse mitral valve thickening. Mild-Moderate (1-2+) eccentric mitral valve insufficiency. Bileaflet restriction of the mitral valve- mild Ordering Physician: Emily Shabazz Referring Physician: Emily Shabazz Performed By: Nena Lopez RCS
== END | disposition home or self-care (01) ==
PROVIDERS: PCP Family Medicine; Referring Provider Nurse Practitioner Family; Visit Provider Nurse Practitioner Family
DX: I34.0 Nonrheumatic mitral (valve) insufficiency (principal); I48.91 Unspecified atrial fibrillation
CPT/HCPCS: 93306

== ENCOUNTER → 2024-03-14 | Outpatient (CLI) | payer BC, MEDICARE, SELFPAY ==
--- NOTE | 2024-03-14 12:55 | CT_ITS ---
INDICATION: Atypical chest pain EXAMINATION: CT CHEST WITHOUT CONTRAST - CT Chest W/O Contrast Injection TECHNIQUE: Helically acquired images were obtained of the chest. A radiation dose optimization technique was used for this scan. IV Contrast dosage and agent: None. COMPARISON: None. FINDINGS: LUNGS, PLEURA AND LARGE AIRWAYS: Lung windows show the lungs to be normally expanded. There is a pleural-based noncalcified 7.5 mm nodule on axial image 34 in the left upper lobe. There is also parenchymal scarring in the right lateral lung base which contains some calcification suggesting this is likely due to previous inflammation. A six-month follow-up CT scan is recommended to assess the bladder. There is no organized infiltrate or effusion. THYROID: No thyroid lesions. HEART AND PERICARDIUM: Heart size is normal. No pericardial effusion. CORONARY ARTERIES: Coronary artery calcification is not seen. VESSELS: Thoracic aorta is not dilated. MEDIASTINUM AND MANNIE: No mediastinal or hilar adenopathy. Esophagus is unremarkable. No hiatal hernia. UPPER ABDOMEN: No acute pathology. BONES: No suspicious lytic or blastic abnormality. Bony structures show degenerative change CT/Chest without Contrast IMPRESSION: Interstitial changes in both lung martin with pleural-based nodule in the left upper lobe and scarring with pleural thickening in the right lung base. Six-month follow-up recommended to assess stability No organized infiltrate or effusion No suspicious adenopathy Degenerative bony changes Electronically Signed: Eliceo Griffith MD at 21:08 EST ,
== END | disposition home or self-care (01) ==
LOC: CT 12:54
PROVIDERS: PCP Family Medicine; Referring Provider Nurse Practitioner Family; Visit Provider Nurse Practitioner Family
DX: R91.1 Solitary pulmonary nodule (principal); R06.02 Shortness of breath
CPT/HCPCS: 71250

== ENCOUNTER → 2024-04-17 | Outpatient (CLI) | payer BC, MEDICARE, SELFPAY ==
--- NOTE | 2024-04-17 16:45 | STRESSREP ---
Stress Test Report Exercise myocardial perfusion stress test. 68-year-old man with a history of chest pain Stress protocol: Resting EKG demonstrates normal sinus rhythm with a rate of 64 bpm resting blood pressure is 122/80 mmHg. The patient exercised according to the regular Sarabjit protocol for a total duration of 9 minutes attaining a maximum heart rate of 184 bpm which was 122% of maximum predicted heart rate; the maximum workload was 10.1 metabolic equivalents. At rest there were no ST or T wave changes noted to suggest ischemia and at peak exercise upsloping ST changes only were noted which did not meet the criteria for ischemia. No clinical angina was noted the test was terminated due to the target heart rate being achieved/fatigue. The peak blood pressure was 174/82 mmHg. Rate-pressure product was 29,700. Patient did have episodes of ventricular couplet activity and premature ventricular complexes noted during recovery. Myocardial perfusion protocol. 11.5 mCi of technetium 99m sestamibi was injected at rest. The patient exercised according to regular Sarabjit protocol for total duration of 9 minutes and at peak exercise 34.6 mCi of technetium 99m sestamibi was injected stress images were obtained stress and rest images were reconstructed in comparing the short axis vertical long and horizontal long axis. Gated images were also obtained. Perfusion SPECT analysis: Review of the stress images demonstrate normal uptake of tracer noted in all areas of the myocardium. The resting images similarly demonstrate normal uptake of tracer noted in all areas of the myocardium. No areas of reversibility are noted to suggest ischemia no previous infarct was noted. Gated SPECT analysis: The gated ejection fraction is 63%. Conclusion: Normal exercise myocardial perfusion stress test at a high workload Preserved ejection fraction.
== END | disposition home or self-care (01) ==
LOC: CVS 06:44
PROVIDERS: PCP Family Medicine; Referring Provider Physician Assistant Medical; Visit Provider Physician Assistant Medical
DX: R06.09 Other forms of dyspnea (principal)
CPT/HCPCS: 78452; 93017; 93225; 93226; A9500; A4216

== ENCOUNTER → 2024-06-25 | Outpatient (CLI) | payer BC, MEDICARE, SELFPAY ==
[2024-06-25 13:19] LABS: AST(SGOT) 27 U/L (<=37); Alanine Aminotransfer ALT/SGPT 25 U/L (<=46); Albumin, Serum 4.4 g/dL (3.4-4.8); Alkaline Phosphatase 93 U/L (40-129); Bilirubin, Direct 0.42 mg/dL (0.00-0.30); Cholesterol 154 mg/dL (<=200); Globulin 2.1 g/dL (2.2-4.2); High Density Lipoprotein 65 mg/dL; Low Density Lipoprotein Calc. 75 mg/dL; Protein, Total 6.5 g/dL (5.9-8.4); Triglycerides 71 mg/dL; Very Low Density Lipoprotein 14 mg/dL (5-40); cholesterol:hdl ratio screen 2.38
== END | disposition home or self-care (01) ==
PROVIDERS: PCP Family Medicine; Visit Provider Family Medicine
DX: Z00.00 Encounter for general adult medical examination without abnormal findings (principal); I48.91 Unspecified atrial fibrillation
CPT/HCPCS: 36415; 80061; 80076

== ENCOUNTER → 2024-08-28 | Outpatient (CLI) | payer BC, MEDICARE, SELFPAY ==
[2024-08-28 08:46] LABS: Hematocrit 44.9 % (40-54); Hemoglobin 14.8 g/dL (13.0-16.5); Mean Corpuscular Hgb 31.8 pg (27.0-32.0); Mean Corpuscular Volume 96.4 fL (80-94); Mean Platelet Vol. 10.4 fl (6.2-12.0); Platelet Count 198 K/mm3 (150-450); RBC Distribution Width CV 13.2 % (11.6-14.6); RBC Distribution Width SD 46.7 fl (35.1-43.9); Red Blood Count 4.66 M/mm3 (4.6-6.2); White Blood Count 4.1 K/mm3 (4.4-11.0)
[2024-08-28 09:26] LABS: Anion Gap 10 (5-15); BUN 17 mg/dL (4-19); BUN/Creat Ratio 17.2 RATIO (10-20); Carbon Dioxide 24.6 mmol/L (21.0-32.0); Chloride 106 mmol/L (98-108); Creatinine, Serum 0.98 mg/dL (0.70-1.20); EST Glomerular Filtration Rate 83 (>60); Glucose 101 mg/dL (70-99); Potassium 4.5 mmol/L (3.3-5.1); Sodium Level 140 mmol/L (133-145)
== END | disposition home or self-care (01) ==
PROVIDERS: PCP Family Medicine; Referring Provider Otolaryngology; Visit Provider Otolaryngology
DX: Z01.812 Encounter for preprocedural laboratory examination (principal)
CPT/HCPCS: 36415; 80048; 85027